=== PATIENT | male | born 1965 | race Two or more races ===

== ENCOUNTER 2024-01-22 02:10 | Emergency (ER) | payer OTHER ==
[~2024-01-22] VITALS: Ht 182.9 cm; Wt 100.0 kg
[2024-01-22 02:25] VITALS: BP 138/89; TEMP 97.8
[2024-01-22 02:35] VITALS: PULSE 86; RESP 12; O2SAT 95
== END 2024-01-22 04:11 | disposition home or self-care (01) ==
LOC: ER 02:10 → EDBD 02:10 → ER 04:11
DX: G47.53 Recurrent isolated sleep paralysis (principal); R41.82 Altered mental status, unspecified; E11.9 Type 2 diabetes mellitus without complications; I10 Essential (primary) hypertension
CPT/HCPCS: 93005